=== PATIENT | male | born 1935 | race Caucasian/White ===

== ENCOUNTER 2019-12-04 08:04 | Outpatient (CLI) | payer MEDICARE, BC ==
[2019-12-04 12:14] LABS: Hemoglobin 9.2 g/dL (14.0-18.0); Mean Corpuscular HGB CONC 32.8 g/dL (32.0-36.0); Mean Corpuscular Hemoglobin 27.8 pg (27.0-31.0); Mean Corpuscular Volume 84.7 fL (78.0-98.0); Mean Platelet Volume 7.2 fL (7.4-10.4); Platelet Count 448 thou/uL (130-400); RBC Distribution Width 19.6 % (11.5-14.5); Red Blood Cell (RBC) Count 3.31 mill/uL (4.70-6.10); White Blood Cell (WBC) Count 8.5 thou/uL (4.8-10.8)
[2019-12-04 12:28] LABS: Bilirubin Negative (Negative); Blood, Urine 1+ (Negative); Clarity Turbid (Clear); Glucose, Urine (Dipstick) Normal (Negative); Leukocyte 500 Leu/uL (Negative); Nitrite 2+ (Negative); Protein, Urine (Dipstick) 50 mg/dL (Neg-Trace); RBC/HPF 21-50 HPF (0-3); Squamous Epithelial 0-3 HPF (0-3); Urobilinogen Normal mg/dL (Less than 2); WBC/HPF Greater than 50 HPF (0-3)
[2019-12-04 12:32] LABS: Anion Gap 11 mmol/L (10-20); BUN (Urea Nitrogen) 15 mg/dL (8.4-25.7); Calc. Creatinine Clearance 0 mL/min (70-130); Calcium 8.7 mg/dL (7.8-10.44); Carbon Dioxide 24 mmol/L (23-31); Chloride 104 mmol/L (98-107); Estimated GFR-MDRD 83; Glucose 88 mg/dL (83-110); Potassium 4.4 mmol/L (3.5-5.1); Sodium 135 mmol/L (136-145)
[2019-12-04 12:35] LABS: Bacteria/HPF 3+ HPF (None Seen)
[2019-12-04 12:36] LABS: Yeast-Hyphae 1+ HPF (None Seen)
--- NOTE | 2019-12-04 17:05 | EKG ---
Test Reason : Blood Pressure : / mmHG Vent. Rate : 088 BPM Atrial Rate : 088 BPM P-R Int : 144 ms QRS Dur : 092 ms QT Int : 376 ms P-R-T Axes : 080 057 040 degrees QTc Int : 454 ms Normal sinus rhythm ST elevation, consider early repolarization Borderline criteria for Confirmed by MALIK MILLAN ([id number]) on 12/04/2019 5:05:23 PM Referred By: RADHA Confirmed By:MALIK MILLAN
== END 2019-12-04 08:05 | disposition home or self-care (01) ==
LOC: LABBT 08:04
PROVIDERS: ATTEND Urology
DX: Z01.818 Encounter for other preprocedural examination (principal); N40.0 Benign prostatic hyperplasia without lower urinary tract symptoms
CPT/HCPCS: 80048; 81001; 85027; 87086; 93005; 93010

== ENCOUNTER 2019-12-09 06:34 | Observation (INO) | payer MEDICARE, BC ==
[2019-12-09] MEDS ORDERED: Levofloxacin 500 mg/D5W 100 ml Premix Bag ONE (07:08)
[2019-12-09] MEDS ORDERED: Fentanyl 100 MCG/2 ML VIAL ONE (08:37)
[2019-12-09] MEDS ORDERED: Promethazine HCl 25 MG/ML VIAL IM PRN (09:33)
[2019-12-09] MEDS ORDERED: Ondansetron HCl/PF 4 MG/2 ML Vial IVP PRN (09:33)
[2019-12-09] MEDS ORDERED: Promethazine HCl 25 MG/ML VIAL SLOW IVP PRN (09:33)
[2019-12-09] MEDS ORDERED: Morphine 2 MG/ML SYRINGE SLOW IVP PRN (10:10)
[2019-12-09] MEDS ORDERED: Zolpidem Tartrate 5 MG TAB PO PRN (10:10)
[2019-12-09] MEDS ORDERED: Ketorolac Tromethamine 30 MG/ML VIAL IVP PRN (10:10)
[2019-12-09] MEDS ORDERED: diphenhydrAMINE 50 MG/ML VIAL IVP PRN (10:10)
[2019-12-09] MEDS ORDERED: Ondansetron PF 4 MG/2 ML Vial IVP PRN (10:10)
[2019-12-09] MEDS ORDERED: HYDROcodone/Acetaminophen 5/325 mg Tablet PO PRN (10:10)
[2019-12-09] MEDS ORDERED: Oxybutynin 5 MG TAB PO PRN (10:10)
--- NOTE | 2019-12-09 10:14 | OP ---
DATE OF PROCEDURE: 12/09/2019 PREOPERATIVE DIAGNOSES: Enlarged prostate with lower urinary tract symptoms, urinary retention. POSTOPERATIVE DIAGNOSES: Enlarged prostate with lower urinary tract symptoms, urinary retention. PROCEDURE PERFORMED: Transurethral resection of prostate. ANESTHESIA: General. COMPLICATIONS: None. BLOOD LOSS: Minimal. SPECIMEN: Prostate chips. DESCRIPTION OF PROCEDURE: After informed consent, the patient was taken to the operating room and transferred to the table under his own power. Anesthesia was established. A time-out was performed showing the correct patient, site, and procedure. Preoperative antibiotics were administered. He was prepped and draped in the lithotomy position after removing his Leigh catheter. I inserted the rigid resectoscope through the urethra noting a normal course and caliber of the urethra down to the prostate noting coapting lateral lobes and a large median lobe. The bladder was entered and systematically examined noting no mucosal abnormalities other than edema from where the catheter has been resting. 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 I began resection at midline resecting from the bladder neck back to the verumontanum. I then resected the patient's left lobe and then the right lobe. Meticulous hemostasis was achieved. The [employer] evacuator was utilized to retrieve all prostate chips. Care was taken to avoid resecting distal to the verumontanum. The bladder was then drained, and then the prostatic fossa was re-examined noting a few areas that had slight oozing, which were cauterized. On final inspection, there were no further chips in the bladder, no active bleeding, and an excellent channel from the verumontanum back to the bladder neck. A 22-Brazilian 3-way catheter was then placed with 30 mL instilled in the balloon. Continuous irrigation was started running clear on slow drip as we finished the procedure. The patient was then awoken from anesthesia, transferred back to his hospital bed, and taken to PACU in stable condition, where he will be admitted overnight. Job ID: [id number]
[2019-12-09] MEDS ORDERED: Ondansetron PF 4 MG/2 ML Vial ONE (10:22)
[2019-12-09] MEDS ORDERED: PROPOFOL 200 MG/20 ML VIAL ONE (10:22)
[2019-12-09] MEDS ORDERED: PHENYLEPHRINE-NS 100 MCG/ML 10 ML SYRINGE ONE (10:22)
[2019-12-09] MEDS ORDERED: Esmolol 100 MG/10 ML VIAL ONE (10:22)
[2019-12-09] MEDS ORDERED: EPHEDRINE 25 MG/5 ML SYRINGE ONE (10:22)
[2019-12-09] MEDS ORDERED: Lidocaine 1% PF 5 ML VIAL ONE (10:22)
[2019-12-09 12:17] VITALS: BMI 19.6
[2019-12-09] MEDS: Sodium Chloride 0.9% 1,000 ML IV SCH ×2 (15:18→23:07)
--- NOTE | 2019-12-09 17:07 | EKG ---
Test Reason : Blood Pressure : / mmHG Vent. Rate : 102 BPM Atrial Rate : 102 BPM P-R Int : 198 ms QRS Dur : 094 ms QT Int : 372 ms P-R-T Axes : 073 060 054 degrees QTc Int : 484 ms Sinus tachycardia with Premature atrial complexes Slight inferior lateral ST elevation probably normal variant When compared with ECG of 04-DEC-2019 11:44, Premature atrial complexes are now Present Confirmed by DR. Michelle BECKFORD ([id number]) on 12/09/2019 5:07:26 PM Referred By: RADHA Confirmed By:DR. Michelle BECKFORD
[2019-12-09] MEDS: Docusate 100 MG CAP PO SCH (21:01)
[2019-12-09] MEDS: Famotidine/PF 20 mg/2ml Vial SLOW IVP SCH (21:01)
[2019-12-10] MEDS: Sodium Chloride 0.9% 1,000 ML IV SCH (08:13)
[2019-12-10] MEDS: Docusate 100 MG CAP PO SCH (08:13)
[2019-12-10] MEDS: Famotidine/PF 20 mg/2ml Vial SLOW IVP SCH (08:13)
[2019-12-10 08:22] VITALS: BP 130/63; TEMP 98.2
--- NOTE | 2019-12-10 12:03 | DIS ---
DATE OF ADMISSION: 12/09/2019 DATE OF DISCHARGE: 12/10/2019 DISCHARGE DIAGNOSES: Urinary retention, lower urinary tract symptoms due to enlarged prostate. PROCEDURES: Bipolar TURP. CONSULT: None. IMAGING STUDIES: None. HOSPITAL COURSE: The patient underwent an uncomplicated bipolar transurethral resection of the prostate. He was managed with continuous bladder irrigation overnight, which remained clear on slow drip. The following morning, this was stopped with urine remaining clear without CBI. He was having no pain and tolerating oral intake. He was deemed stable for discharge home at that point. DISCHARGE PHYSICAL EXAMINATION: GENERAL: No acute distress, conversant. HEART: Regular rate and rhythm. Breathing unlabored. ABDOMEN: Soft, nontender. No suprapubic tenderness. No flank tenderness. Leigh catheter in good position, draining clear urine. SKIN: Warm and dry. DISCHARGE CONDITION: Stable. PLAN: Follow up next Sunday for void trial. MEDICATIONS: Resume all home medications. Postop medications include; 1. Bactrim. 2. Oxybutynin. 3. Ibuprofen. 4. Tramadol. Job ID: [id number]
== END 2019-12-10 11:15 ==
LOC: SDC 06:34 → SURG A 07:37
PROVIDERS: ADMIT Urology; ATTEND Urology
PROC: 0VT08ZZ Resection of Prostate, Via Natural or Artificial Opening Endoscopic (ICD-10-PCS; principal; 2019-12-09)
DX: N40.1 Benign prostatic hyperplasia with lower urinary tract symptoms (principal); R33.8 Other retention of urine; N41.0 Acute prostatitis; N41.1 Chronic prostatitis; N32.89 Other specified disorders of bladder; N32.3 Diverticulum of bladder; I10 Essential (primary) hypertension; E78.5 Hyperlipidemia, unspecified; K21.9 Gastro-esophageal reflux disease without esophagitis; J45.909 Unspecified asthma, uncomplicated; F32.9 Major depressive disorder, single episode, unspecified; H40.9 Unspecified glaucoma; Z86.010 Personal history of colon polyps; Z86.73 Personal history of transient ischemic attack (TIA), and cerebral infarction without residual deficits; Z87.891 Personal history of nicotine dependence; Z79.82 Long term (current) use of aspirin; Z79.899 Other long term (current) drug therapy
CPT/HCPCS: 52601; 88305; 93005; 96361 ×2; 96374; 96376; G0378 ×2; 93010; J1956; J2001; J2405; J2704; J3010; S0028